=== PATIENT | female | born 1960 | race Caucasian/White ===

== ENCOUNTER 2023-12-31 19:58 | Inpatient (IN) | payer MEDICARE, MEDICAID ==
[2023-12-31] MEDS: LORazepam 2 MG/ML SDV IVPUSH ONE (20:00)
[2023-12-31] MEDS ORDERED: Sodium Chloride 0.9% 10 ML Syringe FLUSH PRN (20:03)
[2023-12-31] MEDS: Lactated Ringers 1,000 ML IV ONE (20:10)
[2023-12-31 20:15] LABS: BASOPHILS PERCENT AUTO 0.1 % (0.2-1.2); EOSINOPHILS ABSOLUTE AUTO 0.1 x10^3/uL (0.0-0.5); EOSINOPHILS PERCENT AUTO 0.6 % (0.0-4.0); HEMATOCRIT 41.2 % (33.0-47.0); HEMOGLOBIN 14.2 g/dL (12.0-16.0); IMMATURE GRAN ABSOLUTE AUTO 0.11 x10^3/uL (0.00-0.07); LYMPHOCYTES ABSOLUTE AUTO 4.9 x10^3/uL (1.0-4.8); LYMPHOCYTES PERCENT AUTO 30.9 % (25.0-50.0); MEAN CORPUSCULAR HEMOGLOBIN 31.9 pg (26.0-32.0); MEAN CORPUSCULAR HGB CONC 34.5 g/dL (32.0-36.0); MEAN CORPUSCULAR VOLUME 92.6 fL (78.0-93.0); MONOCYTES ABSOLUTE AUTO 1.7 x10^3/uL (0.0-0.8); MONOCYTES PERCENT AUTO 10.6 % (2.0-11.0); NEUTROPHILS ABSOLUTE AUTO 9.1 x10^3/uL (1.8-7.7); NEUTROPHILS PERCENT AUTO 57.1 % (50.0-80.0); PLATELET COUNT,PLT 309 x10^3/uL (130-400); RED BLOOD CELL COUNT 4.45 x10^6/uL (4.00-5.50)
[2023-12-31 20:35] LABS: INR 1.1 (0.9-1.1); PROTHROMBIN TIME 11.2 SEC (8.9-11.5); PTT,PARTIAL THROMBOPLSTIN TIME 24.1 SEC (21.9-33.8)
[2023-12-31] MEDS: levETIRAcetam 500 MG/5 ML SDV IVPUSH ONE (20:40)
[2023-12-31 20:47] LABS: LACTIC ACID 12.5 mmol/L (0.4-2.0)
[2023-12-31 20:48] LABS: ALANINE AMINOTRANSFERASE,ALT 15 U/L (14-59); ALKALINE PHOSPHATASE 98 U/L (46-116); BILIRUBIN TOTAL 0.3 mg/dL (0.2-1.0); BLOOD UREA NITROGEN,BUN 7 mg/dL (7-18); CALCIUM 9.3 mg/dL (8.5-10.1); CARBON DIOXIDE,CO2 16 mmol/L (21-32); CHLORIDE,CL 92 mmol/L (98-107); CREATININE 1.2 mg/dL (0.55-1.02); GLUCOSE RANDOM 122 mg/dL (70-99); SODIUM,NA 132 mmol/L (136-145); TSH ULTRASENSITIVE 10.514 uIU/mL (0.358-3.74)
[2023-12-31 20:59] LABS: A/G RATIO 0.67; ALBUMIN 3.2 g/dL (3.4-5.0); ASPARTATE AMNIOTRANSFERASE,AST 10 U/L (15-37); MAGNESIUM 1.1 mg/dL (1.8-2.4)
[2023-12-31 21:01] LABS: ESTIMATED GFR 51 mL/min (>=60)
[2023-12-31 21:01] LABS: AMPHETAMINES SCREEN, URINE NEGATIVE (NEGATIVE); APPEARANCE,URINE CLEAR (CLEAR); BARBITURATE SCREEN,URINE NEGATIVE (NEGATIVE); BENZODIAZEPINES SCREEN,URINE NEGATIVE (NEGATIVE); BILIRUBIN,URINE NEGATIVE (NEGATIVE); BUPRENORPHINE SCREEN,URINE NEGATIVE (NEGATIVE); COCAINE METABOLITES,URINE NEGATIVE (NEGATIVE); COLOR,URINE YELLOW (YELLOW); GLUCOSE,URINE NEGATIVE (NEGATIVE); KETONES,URINE TRACE mg/dL (NEGATIVE); LEUKOCYTE ESTERASE,URINE NEGATIVE (NEGATIVE); METHADONE SCREEN, URINE NEGATIVE (NEGATIVE); METHAMPHETAMINE SCREEN, URINE NEGATIVE (NEGATIVE); NITRITE,URINE NEGATIVE (NEGATIVE); OCCULT BLOOD,URINE NEGATIVE (NEGATIVE); OXYCODONE SCREEN,URINE NEGATIVE (NEGATIVE); PCP SCREEN,URINE NEGATIVE (NEGATIVE); PH,URINE 7.5 (5.0-8.0); PROTEIN,URINE NEGATIVE (NEGATIVE); THC SCREEN,URINE 50 NG/ML NEGATIVE (NEGATIVE); UROBILINOGEN,URINE 0.2 EU/dL (0.2)
[2023-12-31 21:02] LABS: CREATINE KINASE,CK 40 U/L (26-192); ETHANOL BLOOD MEDICAL < 3 mg/dL (0-3)
[2023-12-31] MEDS ORDERED: Loratadine 10 MG Tab PO PRN (22:38)
[2023-12-31] MEDS ORDERED: Albuterol HFA 18 Gm Inhaler INH PRN (22:38)
[2023-12-31] MEDS: Sodium Chloride 0.9% 1,000 ML IV ONE (22:48)
[2023-12-31] MEDS ORDERED: Flumazenil 0.1 MG/ML 5 ML MDV IVPUSH PRN (22:55)
[2023-12-31] MEDS: Lactated Ringers 1,000 ML IV SCH (23:43)
[2023-12-31] MEDS: Melatonin 3 MG Tab PO SCH (23:45)
[2024-01-01 07:41] LABS: BASOPHILS PERCENT AUTO 0.1 % (0.2-1.2); EOSINOPHILS ABSOLUTE AUTO 0.1 x10^3/uL (0.0-0.5); EOSINOPHILS PERCENT AUTO 0.5 % (0.0-4.0); HEMATOCRIT 31.6 % (33.0-47.0); HEMOGLOBIN 11.2 g/dL (12.0-16.0); IMMATURE GRAN ABSOLUTE AUTO 0.04 x10^3/uL (0.00-0.07); LYMPHOCYTES ABSOLUTE AUTO 1.7 x10^3/uL (1.0-4.8); LYMPHOCYTES PERCENT AUTO 11.1 % (25.0-50.0); MEAN CORPUSCULAR HEMOGLOBIN 32.3 pg (26.0-32.0); MEAN CORPUSCULAR HGB CONC 35.4 g/dL (32.0-36.0); MEAN CORPUSCULAR VOLUME 91.1 fL (78.0-93.0); MONOCYTES ABSOLUTE AUTO 2.1 x10^3/uL (0.0-0.8); MONOCYTES PERCENT AUTO 13.6 % (2.0-11.0); NEUTROPHILS ABSOLUTE AUTO 11.6 x10^3/uL (1.8-7.7); NEUTROPHILS PERCENT AUTO 74.4 % (50.0-80.0); RED BLOOD CELL COUNT 3.47 x10^6/uL (4.00-5.50); WHITE BLOOD CELL COUNT,WBC 15.5 x10^3/uL (4.0-10.0)
[2024-01-01 08:01] LABS: ALANINE AMINOTRANSFERASE,ALT 14 U/L (14-59); ALBUMIN 2.6 g/dL (3.4-5.0); ALKALINE PHOSPHATASE 79 U/L (46-116); BILIRUBIN TOTAL 0.3 mg/dL (0.2-1.0); BLOOD UREA NITROGEN,BUN 8 mg/dL (7-18); CALCIUM 8.3 mg/dL (8.5-10.1); CARBON DIOXIDE,CO2 29 mmol/L (21-32); CHLORIDE,CL 99 mmol/L (98-107); CREATINE KINASE,CK 103 U/L (26-192); CREATININE 0.6 mg/dL (0.55-1.02); GLUCOSE RANDOM 103 mg/dL (70-99); POTASSIUM,K 3.1 mmol/L (3.5-5.1); PROTEIN TOTAL,TP 5.5 g/dL (6.4-8.2); SODIUM,NA 135 mmol/L (136-145)
[2024-01-01 08:02] LABS: ANION GAP 10.1 mmol/L (5-15); ESTIMATED GFR 101 mL/min (>=60)
[2024-01-01 08:22] LABS: ASPARTATE AMNIOTRANSFERASE,AST < 10 U/L (15-37)
[2024-01-01 08:23] LABS: PLATELET COUNT,PLT 191 x10^3/uL (130-400)
[2024-01-01] MEDS: NS + KCl 20mEq/L 1,000 ML IV SCH (09:09)
[2024-01-01] MEDS: Potassium Chloride Riders 50 ML IV ONE (09:13)
[2024-01-01] MEDS ORDERED: Menthol 10%/Methyl Salicylate 15% 85 GM Tube TOP PRN ×2 (09:13→09:14)
[2024-01-01] MEDS: levETIRAcetam 500 MG/5 ML SDV IVPUSH SCH (09:20)
[2024-01-01] MEDS: Lacosamide 50 MG Tab PO SCH (09:27)
[2024-01-01] MEDS: Sodium Chloride 1 GM Tab PO SCH (09:27)
[2024-01-01] MEDS: Apixaban 2.5 MG Tab PO SCH (09:27)
[2024-01-01] MEDS: Vitamin B Complex Tab PO SCH (09:28)
[2024-01-01] MEDS: Divalproex Sodium 500 MG Tab.ER PO SCH (09:28)
[2024-01-01] MEDS: Allopurinol 100 MG Tab PO SCH (09:28)
[2024-01-01] MEDS: DULoxetine 60 MG Cap PO SCH (09:28)
[2024-01-01] MEDS: Tamsulosin 0.4 MG Cap.ER PO SCH (09:28)
[2024-01-01] MEDS: Thiamine 100 MG Tab PO SCH (09:28)
[2024-01-01] MEDS: Cyanocobalamin (Vitamin B12) 250 MCG Tab PO SCH (09:29)
[2024-01-01] MEDS: atorvaSTATin 40 MG Tab PO SCH (09:29)
[2024-01-01] MEDS: Multivitamin Tab PO SCH (09:29)
[2024-01-01] MEDS: Cholecalciferol (Vitamin D3) 25 MCG Tab PO SCH (09:29)
[2024-01-01] MEDS: Amiodarone 200 MG Tab PO SCH (09:29)
[2024-01-01] MEDS: Metoprolol Tartrate 25 MG Tab PO SCH (09:29)
[2024-01-01] MEDS: Pantoprazole 40 MG Tab.CR PO SCH (09:29)
[2024-01-01] MEDS: Nicotine 21 MG/24 Hr Patch TRDERM SCH (09:36)
[2024-01-01] MEDS: Folic Acid 1 MG Tab PO SCH (09:37)
[2024-01-01] MEDS: Formoterol/Mometasone 200-5 MCG 13 GM Inhaler INH SCH (09:38)
[2024-01-01] MEDS: Lactulose Soln 10 GM/15 ML 30 ML UD Cup PO SCH (09:39)
[2024-01-01] MEDS: Lidocaine 4% 1 each Patch TOP SCH (09:41)
[2024-01-01] MEDS: Levothyroxine 25 MCG Tab PO SCH (11:26)
[2024-01-01] MEDS: MAGNESIUM SULFATE 2 GM/50 ML IV ONE (11:27)
[2024-01-02] MEDS: Aluminum Hydroxide/Magnesium Hydroxide/Simethicone Susp 30 ML Cup PO PRN (00:57)
[2024-01-02 07:23] LABS: BASOPHILS PERCENT AUTO 0.2 % (0.2-1.2); EOSINOPHILS ABSOLUTE AUTO 0.2 x10^3/uL (0.0-0.5); HEMATOCRIT 29.5 % (33.0-47.0); HEMOGLOBIN 10.3 g/dL (12.0-16.0); IMMATURE GRAN ABSOLUTE AUTO 0.03 x10^3/uL (0.00-0.07); LYMPHOCYTES PERCENT AUTO 16.7 % (25.0-50.0); MEAN CORPUSCULAR HEMOGLOBIN 32.6 pg (26.0-32.0); MEAN CORPUSCULAR HGB CONC 34.9 g/dL (32.0-36.0); MEAN CORPUSCULAR VOLUME 93.4 fL (78.0-93.0); MONOCYTES ABSOLUTE AUTO 1.5 x10^3/uL (0.0-0.8); MONOCYTES PERCENT AUTO 12.9 % (2.0-11.0); NEUTROPHILS ABSOLUTE AUTO 8.1 x10^3/uL (1.8-7.7); NEUTROPHILS PERCENT AUTO 67.9 % (50.0-80.0); RED BLOOD CELL COUNT 3.16 x10^6/uL (4.00-5.50); WHITE BLOOD CELL COUNT,WBC 11.9 x10^3/uL (4.0-10.0)
[2024-01-02 07:55] LABS: A/G RATIO 0.89; ALANINE AMINOTRANSFERASE,ALT 11 U/L (14-59); ALBUMIN 2.5 g/dL (3.4-5.0); ALKALINE PHOSPHATASE 74 U/L (46-116); BILIRUBIN TOTAL 0.2 mg/dL (0.2-1.0); BLOOD UREA NITROGEN,BUN 4 mg/dL (7-18); CALCIUM 8.1 mg/dL (8.5-10.1); CARBON DIOXIDE,CO2 28 mmol/L (21-32); CHLORIDE,CL 104 mmol/L (98-107); CREATININE 0.5 mg/dL (0.55-1.02); GLUCOSE RANDOM 95 mg/dL (70-99); MAGNESIUM 1.3 mg/dL (1.8-2.4); POTASSIUM,K 3.4 mmol/L (3.5-5.1); PROTEIN TOTAL,TP 5.3 g/dL (6.4-8.2); SODIUM,NA 134 mmol/L (136-145)
[2024-01-02 07:56] LABS: ANION GAP 5.4 mmol/L (5-15); ASPARTATE AMNIOTRANSFERASE,AST < 10 U/L (15-37); ESTIMATED GFR 106 mL/min (>=60)
[2024-01-02 08:20] LABS: PLATELET COUNT,PLT 196 x10^3/uL (130-400)
[2024-01-02] MEDS: Potassium Chloride 10 MEQ Tab.ER PO SCH (09:07)
[2024-01-02] MEDS: Magnesium Oxide 400 MG Tab PO SCH (09:08)
[2024-01-02] MEDS: levETIRAcetam 500 MG Tab PO SCH (09:09)
[2024-01-02] MEDS: NS + KCl 20mEq/L 1,000 ML IV SCH (22:06)
[2024-01-03 08:02] LABS: BASOPHILS PERCENT AUTO 0.3 % (0.2-1.2); EOSINOPHILS ABSOLUTE AUTO 0.3 x10^3/uL (0.0-0.5); EOSINOPHILS PERCENT AUTO 2.4 % (0.0-4.0); HEMATOCRIT 29.5 % (33.0-47.0); HEMOGLOBIN 10.4 g/dL (12.0-16.0); IMMATURE GRAN ABSOLUTE AUTO 0.04 x10^3/uL (0.00-0.07); LYMPHOCYTES ABSOLUTE AUTO 2.5 x10^3/uL (1.0-4.8); LYMPHOCYTES PERCENT AUTO 22.4 % (25.0-50.0); MEAN CORPUSCULAR HEMOGLOBIN 32.5 pg (26.0-32.0); MEAN CORPUSCULAR HGB CONC 35.3 g/dL (32.0-36.0); MEAN CORPUSCULAR VOLUME 92.2 fL (78.0-93.0); MONOCYTES PERCENT AUTO 14.1 % (2.0-11.0); NEUTROPHILS ABSOLUTE AUTO 6.6 x10^3/uL (1.8-7.7); NEUTROPHILS PERCENT AUTO 60.4 % (50.0-80.0); PLATELET COUNT,PLT 188 x10^3/uL (130-400)
[2024-01-03 08:18] LABS: MONOCYTES ABSOLUTE AUTO 1.6 x10^3/uL (0.0-0.8)
[2024-01-03 08:25] LABS: A/G RATIO 0.86; ALANINE AMINOTRANSFERASE,ALT 12 U/L (14-59); ALBUMIN 2.5 g/dL (3.4-5.0); ALKALINE PHOSPHATASE 78 U/L (46-116); BILIRUBIN TOTAL 0.3 mg/dL (0.2-1.0); BLOOD UREA NITROGEN,BUN 1 mg/dL (7-18); CALCIUM 8.5 mg/dL (8.5-10.1); CARBON DIOXIDE,CO2 31 mmol/L (21-32); CHLORIDE,CL 101 mmol/L (98-107); CREATININE 0.5 mg/dL (0.55-1.02); EST CRCL DRUG DOSING (CG) 95.73 mL/min; GLUCOSE RANDOM 103 mg/dL (70-99); MAGNESIUM 1.2 mg/dL (1.8-2.4); POTASSIUM,K 3.7 mmol/L (3.5-5.1); PROTEIN TOTAL,TP 5.4 g/dL (6.4-8.2); SODIUM,NA 136 mmol/L (136-145)
[2024-01-03 08:26] LABS: ANION GAP 7.7 mmol/L (5-15); ESTIMATED GFR 106 mL/min (>=60)
[2024-01-03 08:39] LABS: ASPARTATE AMNIOTRANSFERASE,AST < 10 U/L (15-37)
[2024-01-03] MEDS: Acetaminophen 325 MG Tab PO PRN (10:22)
[2024-01-03] MEDS: Ondansetron 4 MG/2 ML SDV IVPUSH PRN (13:37)
[2024-01-04] MEDS: NICOTINE 2 MG PO PRN (04:35)
[2024-01-04 06:07] LABS: THYROXINE, TOTAL T4 11.7 ug/dL (4.50-11.70)
[2024-01-04 08:08] LABS: BASOPHILS PERCENT AUTO 0.2 % (0.2-1.2); EOSINOPHILS ABSOLUTE AUTO 0.3 x10^3/uL (0.0-0.5); EOSINOPHILS PERCENT AUTO 2.8 % (0.0-4.0); HEMATOCRIT 31.4 % (33.0-47.0); HEMOGLOBIN 10.9 g/dL (12.0-16.0); IMMATURE GRAN ABSOLUTE AUTO 0.02 x10^3/uL (0.00-0.07); LYMPHOCYTES ABSOLUTE AUTO 1.9 x10^3/uL (1.0-4.8); LYMPHOCYTES PERCENT AUTO 21.7 % (25.0-50.0); MEAN CORPUSCULAR HEMOGLOBIN 32.2 pg (26.0-32.0); MEAN CORPUSCULAR HGB CONC 34.7 g/dL (32.0-36.0); MEAN CORPUSCULAR VOLUME 92.9 fL (78.0-93.0); MONOCYTES ABSOLUTE AUTO 1.2 x10^3/uL (0.0-0.8); MONOCYTES PERCENT AUTO 13.4 % (2.0-11.0); NEUTROPHILS ABSOLUTE AUTO 5.5 x10^3/uL (1.8-7.7); NEUTROPHILS PERCENT AUTO 61.7 % (50.0-80.0); PLATELET COUNT,PLT 203 x10^3/uL (130-400); RED BLOOD CELL COUNT 3.38 x10^6/uL (4.00-5.50); WHITE BLOOD CELL COUNT,WBC 8.9 x10^3/uL (4.0-10.0)
[2024-01-04 08:28] LABS: A/G RATIO 0.83; ALANINE AMINOTRANSFERASE,ALT 12 U/L (14-59); ALBUMIN 2.5 g/dL (3.4-5.0); ALKALINE PHOSPHATASE 74 U/L (46-116); BILIRUBIN TOTAL 0.2 mg/dL (0.2-1.0); BLOOD UREA NITROGEN,BUN 3 mg/dL (7-18); CALCIUM 8.6 mg/dL (8.5-10.1); CARBON DIOXIDE,CO2 30 mmol/L (21-32); CHLORIDE,CL 101 mmol/L (98-107); CREATININE 0.6 mg/dL (0.55-1.02); EST CRCL DRUG DOSING (CG) 79.78 mL/min; GLUCOSE RANDOM 106 mg/dL (70-99); MAGNESIUM 1.4 mg/dL (1.8-2.4); POTASSIUM,K 4.4 mmol/L (3.5-5.1); PROTEIN TOTAL,TP 5.5 g/dL (6.4-8.2); SODIUM,NA 138 mmol/L (136-145)
[2024-01-04 08:38] LABS: ANION GAP 11.4 mmol/L (5-15); ASPARTATE AMNIOTRANSFERASE,AST < 10 U/L (15-37); ESTIMATED GFR 101 mL/min (>=60)
[2024-01-05 07:24] LABS: BASOPHILS PERCENT AUTO 0.3 % (0.2-1.2); EOSINOPHILS ABSOLUTE AUTO 0.3 x10^3/uL (0.0-0.5); EOSINOPHILS PERCENT AUTO 3.2 % (0.0-4.0); HEMATOCRIT 30.9 % (33.0-47.0); IMMATURE GRAN ABSOLUTE AUTO 0.02 x10^3/uL (0.00-0.07); LYMPHOCYTES ABSOLUTE AUTO 2.4 x10^3/uL (1.0-4.8); LYMPHOCYTES PERCENT AUTO 27.1 % (25.0-50.0); MEAN CORPUSCULAR HEMOGLOBIN 32.5 pg (26.0-32.0); MEAN CORPUSCULAR HGB CONC 35.6 g/dL (32.0-36.0); MEAN CORPUSCULAR VOLUME 91.4 fL (78.0-93.0); MONOCYTES ABSOLUTE AUTO 1.2 x10^3/uL (0.0-0.8); MONOCYTES PERCENT AUTO 13.3 % (2.0-11.0); NEUTROPHILS ABSOLUTE AUTO 4.9 x10^3/uL (1.8-7.7); NEUTROPHILS PERCENT AUTO 55.9 % (50.0-80.0); PLATELET COUNT,PLT 219 x10^3/uL (130-400); RED BLOOD CELL COUNT 3.38 x10^6/uL (4.00-5.50); WHITE BLOOD CELL COUNT,WBC 8.7 x10^3/uL (4.0-10.0)
[2024-01-05 07:30] LABS: CALCIUM 8.8 mg/dL (8.5-10.1); CREATININE 0.6 mg/dL (0.55-1.02); EST CRCL DRUG DOSING (CG) 80.75 mL/min; MAGNESIUM 1.5 mg/dL (1.8-2.4); POTASSIUM,K 4.3 mmol/L (3.5-5.1)
[2024-01-05 07:31] LABS: ANION GAP 12.3 mmol/L (5-15)
[2024-01-05] MEDS: Potassium Chloride 10 MEQ Tab.ER PO SCH (08:36)
[2024-01-05] MEDS: Lactulose Soln 10 GM/15 ML 30 ML UD Cup PO SCH (08:36)
[2024-01-06 05:07] LABS: % TRANSFERRIN SAT 8.4 % (20.0-50.0)
== END 2024-01-05 11:35 | DRG 100 ==
LOC: VM.ED 19:58 → VM.MS 21:35
PROVIDERS: ADMIT Nurse Practitioner Family; ATTEND Family Medicine
DX: G40.909 Epilepsy, unspecified, not intractable, without status epilepticus (principal); G93.41 Metabolic encephalopathy; E44.0 Moderate protein-calorie malnutrition; Z91.048 Other nonmedicinal substance allergy status; E22.2 Syndrome of inappropriate secretion of antidiuretic hormone; E72.20 Disorder of urea cycle metabolism, unspecified; F33.9 Major depressive disorder, recurrent, unspecified; E87.20 Acidosis, unspecified; I10 Essential (primary) hypertension; K21.9 Gastro-esophageal reflux disease without esophagitis; K70.30 Alcoholic cirrhosis of liver without ascites; F41.9 Anxiety disorder, unspecified; F32.A Depression, unspecified; D72.829 Elevated white blood cell count, unspecified; R79.89 Other specified abnormal findings of blood chemistry; D69.59 Other secondary thrombocytopenia; I48.0 Paroxysmal atrial fibrillation; E87.6 Hypokalemia; F10.20 Alcohol dependence, uncomplicated; E03.9 Hypothyroidism, unspecified; Z88.8 Allergy status to other drugs, medicaments and biological substances; Z79.01 Long term (current) use of anticoagulants; Z87.891 Personal history of nicotine dependence; Z79.899 Other long term (current) drug therapy
CPT/HCPCS: 36415; 51702; 70450; 71045; 80053; 80164; 80305; 80307; 81003; 82140; 82550; 83605; 83735; 84145; 84436; 84443; 84481; 84484; 85025; 85610; 85730; 87040 ×2; 93005; 93010; 96361; 96374; 96375; 99284; 99285; J1953; J2060; J7030; J7120; 80048; 82728; 83540; 83550; 87070; A9270-GY; J2405; J3475; J3480

== ENCOUNTER 2024-01-12 20:49 | Emergency (ER) | payer MEDICARE, MEDICAID ==
[2024-01-12 21:43] LABS: BASOPHILS PERCENT AUTO 0.4 % (0.2-1.2); EOSINOPHILS ABSOLUTE AUTO 0.2 x10^3/uL (0.0-0.5); EOSINOPHILS PERCENT AUTO 3.2 % (0.0-4.0); HEMATOCRIT 31.6 % (33.0-47.0); HEMOGLOBIN 10.9 g/dL (12.0-16.0); IMMATURE GRAN ABSOLUTE AUTO 0.01 x10^3/uL (0.00-0.07); LYMPHOCYTES ABSOLUTE AUTO 2.5 x10^3/uL (1.0-4.8); MEAN CORPUSCULAR HEMOGLOBIN 31.4 pg (26.0-32.0); MEAN CORPUSCULAR HGB CONC 34.5 g/dL (32.0-36.0); MEAN CORPUSCULAR VOLUME 91.1 fL (78.0-93.0); MONOCYTES ABSOLUTE AUTO 0.9 x10^3/uL (0.0-0.8); MONOCYTES PERCENT AUTO 15.5 % (2.0-11.0); NEUTROPHILS PERCENT AUTO 35.7 % (50.0-80.0); PLATELET COUNT,PLT 213 x10^3/uL (130-400); RED BLOOD CELL COUNT 3.47 x10^6/uL (4.00-5.50); WHITE BLOOD CELL COUNT,WBC 5.6 x10^3/uL (4.0-10.0)
[2024-01-12] MEDS: Ondansetron 4 MG Tab.DIS PO ONE (21:53)
[2024-01-12 21:59] LABS: A/G RATIO 1.04; ALANINE AMINOTRANSFERASE,ALT 11 U/L (14-59); ALBUMIN 2.7 g/dL (3.4-5.0); ALKALINE PHOSPHATASE 99 U/L (46-116); BILIRUBIN TOTAL 0.2 mg/dL (0.2-1.0); BLOOD UREA NITROGEN,BUN 6 mg/dL (7-18); CALCIUM 8.2 mg/dL (8.5-10.1); CARBON DIOXIDE,CO2 30 mmol/L (21-32); CHLORIDE,CL 97 mmol/L (98-107); CREATININE 0.7 mg/dL (0.55-1.02); GLUCOSE RANDOM 107 mg/dL (70-99); MAGNESIUM 1.3 mg/dL (1.8-2.4); PROTEIN TOTAL,TP 5.3 g/dL (6.4-8.2); SODIUM,NA 133 mmol/L (136-145)
[2024-01-12 22:05] LABS: ASPARTATE AMNIOTRANSFERASE,AST < 10 U/L (15-37); ESTIMATED GFR 98 mL/min (>=60)
[2024-01-12 22:10] LABS: APPEARANCE,URINE CLEAR (CLEAR); BILIRUBIN,URINE NEGATIVE (NEGATIVE); COLOR,URINE YELLOW (YELLOW); GLUCOSE,URINE NEGATIVE (NEGATIVE); KETONES,URINE NEGATIVE (NEGATIVE); LEUKOCYTE ESTERASE,URINE NEGATIVE (NEGATIVE); NITRITE,URINE NEGATIVE (NEGATIVE); OCCULT BLOOD,URINE NEGATIVE (NEGATIVE); PROTEIN,URINE NEGATIVE (NEGATIVE); UROBILINOGEN,URINE 0.2 EU/dL (0.2)
[2024-01-12] MEDS: Magnesium Oxide 400 MG Tab PO ONE (22:30)
== END 2024-01-12 23:00 ==
LOC: VM.ED 20:49
DX: E87.1 Hypo-osmolality and hyponatremia (principal); E83.42 Hypomagnesemia; R41.0 Disorientation, unspecified; R11.0 Nausea; I10 Essential (primary) hypertension; K21.9 Gastro-esophageal reflux disease without esophagitis; Z79.899 Other long term (current) drug therapy; Z79.01 Long term (current) use of anticoagulants; Z88.8 Allergy status to other drugs, medicaments and biological substances
CPT/HCPCS: 36415; 80053; 81003; 83735; 85025; 99285; A9270

== ENCOUNTER 2024-04-16 11:56 | Emergency (ER) | payer MEDICARE, MEDICAID ==
[2024-04-16] MEDS: Ondansetron 4 MG/2 ML SDV IVPUSH ONE (12:09)
[2024-04-16 12:15] LABS: BASOPHILS PERCENT AUTO 0.5 % (0.2-1.2); EOSINOPHILS ABSOLUTE AUTO 0.2 x10^3/uL (0.0-0.5); HEMATOCRIT 37.6 % (33.0-47.0); HEMOGLOBIN 12.8 g/dL (12.0-16.0); IMMATURE GRAN ABSOLUTE AUTO 0.01 x10^3/uL (0.00-0.07); LYMPHOCYTES ABSOLUTE AUTO 2.7 x10^3/uL (1.0-4.8); LYMPHOCYTES PERCENT AUTO 45.6 % (25.0-50.0); MEAN CORPUSCULAR HEMOGLOBIN 32.7 pg (26.0-32.0); MEAN CORPUSCULAR VOLUME 95.9 fL (78.0-93.0); MONOCYTES ABSOLUTE AUTO 0.7 x10^3/uL (0.0-0.8); NEUTROPHILS ABSOLUTE AUTO 2.3 x10^3/uL (1.8-7.7); NEUTROPHILS PERCENT AUTO 37.7 % (50.0-80.0); PLATELET COUNT,PLT 167 x10^3/uL (130-400); RED BLOOD CELL COUNT 3.92 x10^6/uL (4.00-5.50)
[2024-04-16 12:37] LABS: A/G RATIO 0.9; ALBUMIN 2.8 g/dL (3.4-5.0); BILIRUBIN TOTAL 0.6 mg/dL (0.2-1.0); CALCIUM 8.9 mg/dL (8.5-10.1); CREATININE 0.8 mg/dL (0.55-1.02); EST CRCL DRUG DOSING (CG) 57.67 mL/min; PROTEIN TOTAL,TP 5.9 g/dL (6.4-8.2)
[2024-04-16] MEDS: Ondansetron 4 MG/2 ML SDV ONE (12:53)
== END 2024-04-16 13:22 ==
LOC: SUPCPDRO 11:56 → VM.ED 11:56
DX: R41.82 Altered mental status, unspecified (principal); R11.0 Nausea; Z91.048 Other nonmedicinal substance allergy status; Z88.8 Allergy status to other drugs, medicaments and biological substances; K21.9 Gastro-esophageal reflux disease without esophagitis; Z79.899 Other long term (current) drug therapy
CPT/HCPCS: 36415; 70450; 80053; 84484; 85025; 93005; 93010; 96374; 99284; 99285-25; J2405

== ENCOUNTER 2024-04-19 13:17 | Emergency (ER) | payer MEDICAID, MEDICARE | END 2024-04-19 14:30 | LOC: VM.ED 13:17 | DX: S70.02XA Contusion of left hip, initial encounter (principal); S70.12XA Contusion of left thigh, initial encounter; I10 Essential (primary) hypertension; I48.91 Unspecified atrial fibrillation; K21.9 Gastro-esophageal reflux disease without esophagitis; Z79.899 Other long term (current) drug therapy; Z79.01 Long term (current) use of anticoagulants; Z88.8 Allergy status to other drugs, medicaments and biological substances; Z91.048 Other nonmedicinal substance allergy status | CPT/HCPCS: 99283 ==